=== PATIENT | male | born 1945 | race Caucasian/White ===

== ENCOUNTER → 2019-02-06 | Outpatient (CLI) | payer OTHER ==
[~2019-02-06] VITALS: Ht 167.6 cm; Wt 69.4 kg
[~2019-02-06] MED LIST: ABIRATERONE AC250 MG PO; ARICEPT 5 MG TAB5 MG PO; ESCITALOPRAM OX20 MG PO; FINASTERIDE5 MG PO; FLOMAX0.4 MG PO; GABAPENTIN 100100 MG PO; HYDROCODON-ACE1 EAC7 PO; LOSARTAN POTAS100 MG PO; MOBIC15 MG PO; NABUMETONE 500500 M2 PO; NAMENDA 10 MG T10 MG PO; TRAMADOL 50 MG50 MG PO
[2019-02-06 14:17] VITALS: BP 135/91
--- NOTE | 2019-02-11 17:25 | HPC ---
[facility] [place] [address] PAIN MANAGEMENT CONSULTATION Name: HANNAH MORGAN Room #: REG [facility] M.R.#: [id number] Admission: 02/06/19 ������������������ Attend Phys: Danish Gordon MD Discharge: ������������������ Date of : 47 Report #: [id number] THIS REPORT FOR: //name// CC: BARBARA Bagley MD Physician staff Danish Gordon DATE OF SERVICE: 02/06/2019 REASON FOR CONSULTATION: Severe back pain radiating into the hips. HISTORY OF PRESENT ILLNESS: The patient is here today with his daughter. He has Alzheimer's type dementia. His daughter tells me directly during the interview, her father is at her side. He has a history of prostate cancer. His pain dates back about 6 months when it became more severe and is now described by the daughter as the sharp stabbing pain in his low back that radiates into his hips. The patient tells me it is in both hips and both knees are also painful. These are separate pain generators. It is worsened by walking. He is more comfortable when he is lying or sitting down. He has received a variety of different medications including tramadol, hydrocodone, although there has been no consistency. He has currently been taking tramadol 50 mg changed to 100 mg on a p.r.n. basis. This has not been as helpful as liked. There is some concern by family that this medication might worsen his dementia, although it has not been clearly evident. CURRENT MEDICATIONS: Abiraterone, escitalopram, finasteride, gabapentin, losartan, meloxicam, tamsulosin, and tramadol. He is also on amantadine and donazepril for his dementia. ALLERGIES: None. PAST MEDICAL HISTORY: Remarkable for prostate cancer, hypertension, osteoarthritis involving knees and hips. PAST SURGICAL HISTORY: Daughter reports no surgeries. SOCIAL HISTORY: He lives with his . They are able to live independently in her home, although there is obviously some help from family. He has never smoked, but he has continued to drink alcohol on occasion once weekly or so. PHYSICAL EXAMINATION: GENERAL: He is a pleasant gentleman, alert and oriented, but confused. He can independently move from sitting to standing position, but walks with a fairly unstable gait. He winces as he steps. [address] [address] PAIN MANAGEMENT CONSULTATION Name: HANNAH MORGAN Room #: REG [facility] Chetna.#: [id number] Admission: 02/06/19 ������������������ Attend Phys: Danish Gordon MD Discharge: ������������������ Date of : 47 Report #: [id number] VITAL SIGNS: His blood pressure 135/91, heart rate 67, and respirations 16. He is 5 feet 6 inches, 153 pounds, BMI is 24.7.NECK: Supple. CHEST: Clear. CARDIAC: Reveals a slight grade 2/6 systolic murmur at left sternal border. ABDOMEN: Soft and mildly tender. Pain across the lumbosacral segment is noted. Bilateral sacroiliac joint pain is noted. Straight leg raising is negative for radicular pain. Both knees are tender. There is no peripheral edema. IMPRESSION: 1. Prostate cancer, doing well clinically per Dr. Khoury's notes and PSA is responding to treatment. 2. Chronic low back pain, which is likely spondylitic and related to changes, perhaps within the facets and the sacroiliac joints. 3. Osteoarthritis, bilateral knees. 4. Dementia, Alzheimer's type per daughter. RECOMMENDATIONS: He is against any form of injection therapy. I provided a prescription for hydrocodone #30 and we will assess his response to this from a standpoint of pain, side effects, and daughter will monitor carefully for any opioid related side effects associated with cognition or memory. Many of our patients with dementia can take modest amounts of opioids without worsening the condition, it is not a universal side effects experience by all. At times when pain is better relieved, patients are more calm and actually function at a higher level. 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 He is allowed to take one to two tablets per day in our current agreement. Followup visit planned in 1-2 months. ��������������������������������������������� <ELECTRONICALLY SIGNED> ���������������������������������������� By: Danish Gordon MD ��������������������������������������������� 02/11/19 1725 [id number] Danish Gordon MD /nt
== END ==
LOC: PAIN 08:25
DX: M54.5 Low back pain (principal); G89.29 Other chronic pain; C61 Malignant neoplasm of prostate; M17.0 Bilateral primary osteoarthritis of knee; G30.9 Alzheimer's disease, unspecified; F02.80 Dementia in other diseases classified elsewhere, unspecified severity, without behavioral disturbance, psychotic disturbance, mood disturbance, and anxiety; Z79.899 Other long term (current) drug therapy

== ENCOUNTER → 2019-05-01 | Outpatient (CLI) | payer OTHER ==
[~2019-05-01] VITALS: Ht 167.6 cm; Wt 69.9 kg
[~2019-05-01] MED LIST changes: +BUTRANS1 EACH TOP; +NABUMETONE 500500 M1 PO; +VOLTAREN GEL 1100 G2 TOP
[2019-05-01 13:15] VITALS: BP 137/93
--- NOTE | 2019-05-01 13:39 | NUR ---
Pain Clinic Assessment: 1. History of Osteoarthritis: knees spine History of Rheumatoid Arthritis: Not Applicable 2. Height: 5 ft. 6 in. 167.6 cm. Weight: 154.0 lb. oz. 69.854 kg. Patient's BMI: 24.9 3. Vital Signs: BP: 137/93 Pulse: 66 Resp: 16 Temp: 02 Sat: 97 ECG Mon: 4. Pain Intensity: 9 5. Fall Risk: Dizziness: N Needs help standing or walking: Y Fallen in the last 3 months: N Fall risk comments: 6. Patient on Blood Thinner: None 7. History of Hypertension: Y 8. Opioid Therapy greater than 6 weeks: N Opiate Contract Signed: 9. Risk Assessment Tool Provided: 10. Functional Assessment Tool: 11. Recreational Drug Use: Never Drug Type: Tobacco Use: Never Smoker Tobacco Type: Amount or Packs/day: How Many Years: Alcohol Use: Yes Frequency: Quant:
--- NOTE | 2019-05-06 11:45 | HPC ---
[facility] [address] [address] PAIN MANAGEMENT CONSULTATION Name: HANNAH MORGAN Room #: REG NITISH Martinez#: [id number] Admission: 05/01/19 ������������������ Attend Phys: Janina Triplett Discharge: ������������������ Date of : 47 Report #: [id number] THIS REPORT FOR: //name// CC: Janina RENEE MD Physician staff DATE OF SERVICE: 05/01/2019 CHIEF COMPLAINT: Back pain radiating into his hips and knees. HISTORY OF PRESENT ILLNESS: This is a very pleasant 73-year-old gentleman who returns to the pain clinic today for refill of his medications or to discuss slightly stronger medications that he uses to help treat his low back pain that radiates into his bilateral hips, right greater than left and into his knees. He reports a pain score of 9/10 today. It is worse with walking and activity, but better with lying down and sitting. He is here present with his today. The patient informs me that the hydrocodone that Dr. Danish Gordon gave to him in his last visit made him feel "spacey. He did not like that filling since he already has issues with his memory and takes memory medicine. He is wondering if he had something that is slightly stronger than the tramadol he is taking that something that will not have the same effect as the hydrocodone. He currently has been taking 2 tramadol 50 mg tablets in the morning. They are unsure if they take 2 also in the evening. The patient is also using Biofreeze to his knees. He feels that his knees have increased pain due to their recent move. He did overdo it for his , going up and down the steps quite frequently, carrying heavy boxes. They would like medications today. ALLERGIES: No known drug allergies. CURRENT LIST OF MEDICINES: Nabumetone 500 mg b.i.d., Aricept 5 mg daily, tramadol 50 mg p.r.n., Namenda 10 mg b.i.d., Flomax daily, losartan 100 mg daily, gabapentin 100 mg 3 times a day, finasteride 5 mg daily, escitalopram 20 mg daily and abiraterone 250 mg daily. PQRS: 1. The patient has osteoarthritis in his hips and knees. Denies any rheumatoid arthritis. 2. Height is 5 feet 6 inches, weight is 154, BMI is 24. 4. Vital signs: Temperature 137/93, pulse is 66, respirations 16, oxygen sat is 97. 5. Pain score is 9/10. [place] [address] PAIN MANAGEMENT CONSULTATION Name: HANNAH MORGAN Room #: REG CLLou Basilio.#: [id number] Admission: 05/01/19 ������������������ Attend Phys: Janina Triplett Discharge: ������������������ Date of : 47 Report #: [id number] 6. Denies dizziness. Does need help walking. He has not fallen in the last 3 months. 7. The patient is not on any blood thinners, but does take medicine for hypertension. 8. Opiate therapy is greater than 6 weeks; therefore, we have not signed an opioid contract yet on this patient since he is fairly new to our clinic. 9. Risk assessment tool is low. Functional assessment is 55/70. 10. Recreational drug use, he denies. He is not a smoker and occasionally drinks alcohol. We did check the prescription monitoring system. The patient recently filled his tramadol in April. PHYSICAL EXAMINATION: GENERAL: This is a pleasant gentleman who is alert and orientated, but confused at times. He moves, placing his current pain score at 9/10. HEENT: Normocephalic, atraumatic. Extraocular eye muscles are intact. MUSCULOSKELETAL: The patient moves from sitting to standing position. He walks with an unsteady gait. Straight leg raising is negative for radicular pain. His bilateral knees are tender and pain increases with standing or movement. He has lumbosacral pain that radiates into his bilateral sacroiliac joint and his bilateral hips, right greater than the left. IMPRESSION: 1. Prostate cancer, undergoing current treatment. 2. Chronic low back pain. 3. Sacroiliac joint pain. 4. Osteoarthritis in the bilateral knees. 5. Dementia and Alzheimer's type, per family. We reviewed the fact that opiate medications are being used to provide analgesia adequate to support activities of daily living, not attempting to achieve a specific pain score on the 0-10 Visual Analog Scale. The current opiate medications are providing sufficient analgesia to allow the patient to participate in activities of daily living. The patient is not exhibiting any aberrant behavior suggestive of drug diversion. The patient is not having any adverse reactions to medications. The patient is not suffering from daytime somnolence or mental acuity changes. The patient is managing opiate-induced constipation with appropriate arsd-qkn-deecass agents and dietary considerations. The patient was counseled on concern for caution with operating a motor vehicle while using opiate medications. A physical exam was performed and the patient's functional status was evaluated. All patients with back pain were advised against the bed rest greater than 4 days and were advised to return to normal activities. Pain score assessment was noted and the treatment plan was reviewed with the patient. All current [facility] [address] [place] [address] PAIN MANAGEMENT CONSULTATION Name: HANNAH MORGAN Room #: [facility] [id number] Admission: 05/01/19 ������������������ Attend Phys: Janina Triplett Discharge: ������������������ Date of : 46 Report #: [id number] medications, both prescribed and OTC were reviewed and reconciled on the electronic medical record. Tobacco screening was accomplished and smoking cessation was advised when indicated. BMI was noted and diet/exercise modification was recommended for all patients following outside normal parameters. I reviewed with the patient today their responsibilities to safeguard prescription medications, reviewed their responsibility to utilize medications only as prescribed by the physician. They are to seek and receive pain medications only from 1 physician group ( [facility]). They are to use 1 pharmacy and keep the clinic informed if they change pharmacies. Their responsibilities include making followup visits in a timely fashion and to avoid abrupt discontinuation of medication usage. Their responsibilities further include bringing their medications (bottles from the pharmacy with residual pills) to the visit for possible confirmation of pill counts and the patient understands it is their responsibility to submit to random drug screens to ensure both that the medications prescribed are present, and that no other controlled substances are present. All prescriptions provided today were generated electronically. PLAN: 1. We discussed treatment options with the patient today. The patient found the hydrocodone trial to make him feel spacey and feeling overmedicated; therefore, he was switched back to his tramadol, which has not been as effective in controlling his pain. He is seeking alternatives. We discussed tramadol ER as a possible option of 100 mg daily, but I believe a better choice for him maybe buprenorphine. This does come in a pill or a patch form. I think Butrans patch at 5 mcg would be a very good choice for him. He or his would not have to think about this medication as it would be steady state for him for 7 days, replacing that once a week. We will start at the lowest dose at 5 mcg. The patient instructed to call in a week. If it is not beneficial in controlling this pain, this medication does come in various other strengths, we may choose to double that medicine or give him 7.5 mcg patches. I explained to them that this is a different receptor then they have had with their pain medicines before and I am hopeful that it will be very beneficial for him. 2. The patient does take nabumetone 500 mg 1-2 tablets a day for his ongoing arthritic changes since he has been complaining of increased knee pain. I offered him Voltaren gel to use on his knees sparingly to see if that helps on the days that he uses Voltaren gel, he will take only one nabumetone. 3. The patient is seen with Dr. Danish Gordon today who also collaborated care. The patient will call with his report on how medications doing, we will [address] [address] PAIN MANAGEMENT CONSULTATION Name: HANNAH MORGAN Room #: SOFI Martinez#: [id number] Admission: 05/01/19 ������������������ Attend Phys: Janina Triplett Discharge: ������������������ Date of : 47 Report #: [id number] call in refills if need be for additional 2 months and therefore, the patient will return in 3 months. ��������������������������������������������� <ELECTRONICALLY SIGNED> ���������������������������������������� By: Janina Triplett ��������������������������������������������� 05/06/19 1145 [id number] Janina Triplett /nt
== END ==
LOC: PAIN 03-03 06:57
DX: M54.5 Low back pain (principal); G89.29 Other chronic pain; M53.3 Sacrococcygeal disorders, not elsewhere classified; M17.0 Bilateral primary osteoarthritis of knee; C61 Malignant neoplasm of prostate; G30.9 Alzheimer's disease, unspecified; F02.80 Dementia in other diseases classified elsewhere, unspecified severity, without behavioral disturbance, psychotic disturbance, mood disturbance, and anxiety; Z79.899 Other long term (current) drug therapy

== ENCOUNTER → 2019-06-06 | Outpatient (CLI) | payer OTHER ==
[~2019-06-06] VITALS: Ht 167.6 cm; Wt 70.7 kg
[~2019-06-06] MED LIST changes: +VOLTAREN GEL 1100 GM TOP
[2019-06-06 08:18] VITALS: BP 148/91
--- NOTE | 2019-06-06 08:27 | NUR ---
Pain Clinic Assessment: 1. History of Osteoarthritis: knees spine History of Rheumatoid Arthritis: Not Applicable 2. Height: 5 ft. 6 in. 167.6 cm. Weight: 155.8 lb. oz. 70.670 kg. Patient's BMI: 25.2 3. Vital Signs: BP: 148/91 Pulse: 70 Resp: 16 Temp: 02 Sat: 97 ECG Mon: 4. Pain Intensity: 6 5. Fall Risk: Dizziness: N Needs help standing or walking: Y Fallen in the last 3 months: N Fall risk comments: 6. Patient on Blood Thinner: None 7. History of Hypertension: Y 8. Opioid Therapy greater than 6 weeks: N Opiate Contract Signed: 9. Risk Assessment Tool Provided: 10. Functional Assessment Tool: 11. Recreational Drug Use: Never Drug Type: Tobacco Use: Never Smoker Tobacco Type: Amount or Packs/day: How Many Years: Alcohol Use: Yes Frequency: Quant:
--- NOTE | 2019-06-09 08:43 | HPC ---
[facility] [address] [place] [address] PAIN MANAGEMENT CONSULTATION Name: HANNAH MORGAN Room #: REG NITISH Basilio.#: [id number] Admission: 06/06/19 Attend Phys: Janina Triplett Discharge: Date of : 47 Report #: [id number] THIS REPORT FOR: //name// CC: Janina Durbin MD DATE OF SERVICE: 06/06/2019 CHIEF COMPLAINT: Back pain radiating to his knees and hips. HISTORY OF PRESENT ILLNESS: This is a very pleasant 73-year-old gentleman who returns to the pain clinic today for followup for medication change that we made last month. He is finding the Butrans very beneficial in controlling his pain. He reports that it took about 2 weeks before he noticed a difference, but since that time, he feels that he has been more active and able to do more while taking the Butrans patch. Today, he does report his pain as a 6/10 since he was needing to change his patch yesterday. He reports most of his pain is in his lumbar spine as well as bilateral knees and hips. It is worse with activity, but better with lying down and sitting. He also reports that diclofenac gel has been beneficial, is rubbing it on his knees. He would like refills of all these medications today. ALLERGIES: No known drug allergies. CURRENT LIST OF MEDICATIONS: Nabumetone 500 mg b.i.d. p.r.n., Butrans 5 mcg patch daily, Voltaren gel as needed, Aricept 5 mg daily, Namenda 10 mg b.i.d., Flomax 0.4 mg daily, losartan 100 mg daily, gabapentin 100 mg 3 times a day, finasteride 5 mg daily, Lexapro 20 mg daily and abiraterone 250 mg daily. PQRS: 1. He has osteoarthritis in his hips and knees. Denies any rheumatoid arthritis. 2. Height is 5 feet 6 inches, weight is 155, BMI is 25. 3. Vital signs 148/91, pulse is 70, respirations 16, oxygen sat is 97. 4. Pain score 6/10. 5. Fall risk. Denies dizziness. Does need help walking, has not fallen in the last 3 months. The patient is not on any blood thinners, but does take medicine for hypertension. His opioid therapy is greater than 6 weeks; therefore, we will place an opioid signed contract on the chart for him to sign. Risk assessment tool is low. Functional assessment is 55/70. 6. Recreational drug use, he denies. He is not a smoker and occasionally drinks alcohol. According to the prescription monitoring system, the patient is filling appropriately for his medications and is due to fill those today. [address] [address] PAIN MANAGEMENT CONSULTATION Name: HANNAH MORGAN Room #: REG NITISH Martinez#: [id number] Admission: 06/06/19 Attend Phys: Janina Triplett Discharge: Date of : 47 Report #: [id number] PHYSICAL EXAMINATION: GENERAL: This is a pleasant gentleman who is alert and orientated. He is placing his current pain score at 6/10 today. HEENT: Normocephalic, atraumatic. Extraocular eye muscles are intact. Mucous membranes are moist. MUSCULOSKELETAL: The patient moves from sitting to standing position with slight difficulty. He walks with an unsteady antalgic gait. Straight leg raising is negative for radicular pain. He has tenderness in his bilateral knees that worsens with standing and movement. IMPRESSION: 1. Prostate cancer, undergoing current treatment. 2. Chronic low back pain. 3. Sacroiliac joint pain. 4. 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 5. Dementia and Alzheimer's. We reviewed the fact that opiate medications are being used to provide analgesia adequate to support activities of daily living, not attempting to achieve a specific pain score on the 0-10 Visual Analog Scale. The current opiate medications are providing sufficient analgesia to allow the patient to participate in activities of daily living. The patient is not exhibiting any aberrant behavior suggestive of drug diversion. The patient is not having any adverse reactions to medications. The patient is not suffering from daytime somnolence or mental acuity changes. The patient is managing opiate-induced constipation with appropriate ymyk-rmw-dcwchmd agents and dietary considerations. The patient was counseled on concern for caution with operating a motor vehicle while using opiate medications. A physical exam was performed and the patient's functional status was evaluated. All patients with back pain were advised against the bed rest greater than 4 days and were advised to return to normal activities. Pain score assessment was noted and the treatment plan was reviewed with the patient. All current medications, both prescribed and OTC were reviewed and reconciled on the electronic medical record. Tobacco screening was accomplished and smoking cessation was advised when indicated. BMI was noted and diet/exercise modification was recommended for all patients following outside normal parameters. I reviewed with the patient today their responsibilities to safeguard prescription medications, reviewed their responsibility to utilize medications only as prescribed by the physician. They are to seek and receive pain medications only from 1 physician group ([facility]). They are to use 1 pharmacy and keep the clinic informed if they change pharmacies. Their responsibilities include making followup visits in a timely fashion and to avoid abrupt discontinuation of medication usage. Their responsibilities further [place] [id number] PAIN MANAGEMENT CONSULTATION Name: HANNAH MORGAN Room #: REG [facility] M..#: [id number] Admission: 06/06/19 Attend Phys: Janina Triplett Discharge: Date of : 47 Report #: [id number] include bringing their medications (bottles from the pharmacy with residual pills) to the visit for possible confirmation of pill counts and the patient understands it is their responsibility to submit to random drug screens to ensure both that the medications prescribed are present, and that no other controlled substances are present. All prescriptions provided today were generated electronically. PLAN: 1. We discussed treatment options with the patient and family today. He feels that the Butrans is quite beneficial in controlling his pain. He likes not having to think about taking medicines throughout the day. He would like refills of this patch. Script given today for 5 mcg #4 with 2 additional refills. This is a 3-month supply, places him currently at 50 morphine mEq a day 2. The patient does complain of some constipation issues. Per his , he does not drink much liquids throughout the day, which also does not need help his constipation. I encouraged him to drink water, whether it be flavored water with fruit in it. Encouraged to increase his daily intake, also try MiraLax or stool softeners to see if this is beneficial in controlling some of his constipation issues. 3. Scripts given also today for his Voltaren gel, which he finds beneficial. Using it couple of times a day to his knees as well as nabumetone 500 mg b.i.d. p.r.n. with 2 additional refills. The patient is seen in collaboration with Dr. Karan Knox. <ELECTRONICALLY SIGNED> By: Janina Triplett 06/09/19 0843 [id number] Janina Triplett /nt
== END ==
LOC: PAIN 06:55
DX: Z76.0 Encounter for issue of repeat prescription (principal); C61 Malignant neoplasm of prostate; M54.5 Low back pain; G89.29 Other chronic pain; M17.0 Bilateral primary osteoarthritis of knee; G30.9 Alzheimer's disease, unspecified; F02.80 Dementia in other diseases classified elsewhere, unspecified severity, without behavioral disturbance, psychotic disturbance, mood disturbance, and anxiety; Z79.891 Long term (current) use of opiate analgesic; Z79.899 Other long term (current) drug therapy

== ENCOUNTER → 2019-09-01 | Outpatient (CLI) | payer OTHER ==
[~2019-09-01] VITALS: Ht 167.6 cm; Wt 71.7 kg
[~2019-09-01] MED LIST changes: +STOOL SOFTENER100 M1 PO
[2019-09-01 13:35] VITALS: BP 113/74
--- NOTE | 2019-09-01 13:55 | NUR ---
Pain Clinic Assessment: 1. History of Osteoarthritis: knees spine History of Rheumatoid Arthritis: Not Applicable 2. Height: 5 ft. 6 in. 167.6 cm. Weight: 158.0 lb. oz. 71.668 kg. Patient's BMI: 25.5 3. Vital Signs: BP: 113/74 Pulse: 78 Resp: 16 Temp: 02 Sat: 97 ECG Mon: 4. Pain Intensity: 8 5. Fall Risk: Dizziness: N Needs help standing or walking: Y Fallen in the last 3 months: Y Fall risk comments: 6. Patient on Blood Thinner: None 7. History of Hypertension: Y 8. Opioid Therapy greater than 6 weeks: N Opiate Contract Signed: 9. Risk Assessment Tool Provided: 10. Functional Assessment Tool: 11. Recreational Drug Use: Never Drug Type: Tobacco Use: Never Smoker Tobacco Type: Amount or Packs/day: How Many Years: Alcohol Use: Yes Frequency: Weekly Quant: 2 DRINKS
--- NOTE | 2019-09-02 08:26 | HPC ---
[facility] [address] [place] [address] PAIN MANAGEMENT CONSULTATION Name: HANNAH MORGAN Room #: REG NITISH Martinez#: [id number] Admission: 09/01/19 Attend Phys: Janina Triplett Discharge: Date of : 47 Report #: [id number] THIS REPORT FOR: //name// CC: Janina Durbin MD DATE OF SERVICE: 09/01/2019 CHIEF COMPLAINT: Back pain radiating to his knees and hips and left groin pain. HISTORY OF PRESENT ILLNESS: This is a pleasant 74-year-old gentleman who returns to the pain clinic today for refill of his Butrans patch. He has a family member here with him. At times, he is forgetful of words and does seek information from his daughter throughout our visit. The patient does report a pain score of 8/10 in his lower back and bilateral knees. He does report that he recently fell and saw his primary care doctor. He did have some x-rays in the office. He states that he had a groin pull that continues to be problematic. The patient is walking with antalgic gait, favoring that leg and he does use a cane. His pain is worse with walking and activity, but better when he lies down. He is wearing his Butrans patch, which he reports does not cause him any problems with daytime sleepiness or constipation. He does take an occasional tramadol throughout the day if his pain is increased. ALLERGIES: No known drug allergies. CURRENT LIST OF MEDICATIONS: Colace, nabumetone 500 mg b.i.d., Voltaren gel p.r.n., Butrans patch 5 mcg daily, Aricept 5 mg daily, Namenda 10 mg b.i.d., Flomax 0.4 mg daily, losartan, gabapentin, finasteride, escitalopram. PQRS: 1. He has osteoarthritic changes in his hips and knees. Denies any rheumatoid arthritis. 2. Height is 5 feet 6 inches, weight is 158, BMI is 25. 3. Vital signs, blood pressure 113/74, pulse is 78, respirations 16, oxygen sat is 97. 4. Pain score is 8/10. 5. Denies dizziness. Does need help walking using a cane. He has fallen in the last 3 months. 6. The patient is not on any blood thinners, but does take medicine for hypertension. 7. Opiate therapy is greater than 6 weeks. Risk assessment tool is low. Functional assessment is 55/70. 8. Recreational drug use, he denies. He is not a smoker and occasionally drinks alcohol 2 drinks per week. [address] [address] PAIN MANAGEMENT CONSULTATION Name: HANNAH MORGAN Room #: REG NITISH Martinez#: [id number] Admission: 09/01/19 Attend Phys: Janina Triplett Discharge: Date of : 47 Report #: [id number] PHYSICAL EXAMINATION: GENERAL: This is pleasant gentleman who is alert and orientated. He is forgetful at times, rating his pain score at 8/10. HEENT: Normocephalic, atraumatic. Extraocular eye muscles are intact. Mucous membranes are moist. MUSCULOSKELETAL: The patient moves from sitting to standing using the armrest. He does walk with an unsteady antalgic gait using a cane. He has pain in his left groin that radiates from his hip into the groin from a recent fall. He has equal strength in his lower extremities. Straight leg raising does increase his pain in his left leg. IMPRESSION: 1. Prostate cancer, undergoing current treatment. 2. Left groin pain. 3. Chronic low back pain. 4. Sacroiliac joint pain. 5. Dementia and Alzheimer's with treatment of medication. 6. 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 7. Opioid management under terms of written opioid agreement. PLAN: 1. We discussed treatment options with the patient today. The patient reports that his pain is an 8/10. Most of his pain is located in his left groin from a recent fall. I did discuss in great length that I believe physical therapy may be beneficial in helping with this groin pull. The patient is worried about how he will get to physical therapy since he is reliant on others to help drive him. He is uncertain that this is a good option for his pain, though his family states they think that it would be beneficial for him. They will make sure that he gets to appointments. Scripts will be written for 2 times a week for 2-3 weeks to see if this is beneficial in reducing his pain. The patient instructed to call his primary care doctor if the symptoms continue. 2. We will refill his Butrans 5 mcg patch for 4 patches for 1 month with 2 additional refills. 3. We will refill his diclofenac gel. He takes sparingly on his knees and ankles as well as nabumetone 500 mg b.i.d., #60 with 2 additional refills will be sent. The patient cautioned about any GI upset to take this medication with food. The patient currently states he is having no gastric issues. 4. The patient will return in 3 months. I encouraged to make a timely appointment. Family verbalizes understanding. <ELECTRONICALLY SIGNED> By: Janina Triplett 09/02/19 0826 [id number] 01 Janina zarate
== END ==
LOC: PAIN 13:09
DX: M54.9 Dorsalgia, unspecified (principal); C61 Malignant neoplasm of prostate; R10.9 Unspecified abdominal pain; G30.9 Alzheimer's disease, unspecified; F02.80 Dementia in other diseases classified elsewhere, unspecified severity, without behavioral disturbance, psychotic disturbance, mood disturbance, and anxiety; Z79.891 Long term (current) use of opiate analgesic

== ENCOUNTER → 2019-12-08 | Outpatient (CLI) | payer OTHER ==
[~2019-12-08] MED LIST changes: +DURAGESIC1 EACH TRANSDERM; +ULTRAM50 MG PO
--- NOTE | ~2019-12-08 | HPC ---
[facility] [place] [address] PAIN MANAGEMENT CONSULTATION Name: HANNAH MORGAN Room #: REG NITISH Chetna.#: [id number] Admission: 12/08/19 Attend Phys: Dnaish Gordon MD Discharge: Date of : 47 Report #: [id number] THIS REPORT FOR: cc: BARBARA MOLINA Physician not on staff Danish Gordon MD ~ CC: BARBARA Bagley MD Physician staff Danish Gordon DATE OF SERVICE: 12/08/2019 TELEMEDICINE VISIT Followup visit for chronic back pain with radiation into lower extremities, history of prostate cancer and dementia. Time of consultation 09:32 to 09:57, 15 minutes. I connected by telemedicine today with the patient and his . Our 15-minute consultation took place with the use of both audio and visual assistance via iPad and [employer]. He is getting along okay. Pain score is still in the range of 5-8. We provide for him Butrans 5 mcg per hour patches, which he changes every 7 days. He has lately noticed that the patches are falling off and are expensive. They cost him $100 per month. They are somewhat effective, but he has mild constipation for which he requires a softener. He wanted to discuss potential alternate medicines. He is also using 2 types of nonsteroidal anti-inflammatory drugs, low-dose Voltaren 1% gel applied to his arthritic knees and his back as well as nabumetone 500 mg b.i.d. He takes this p.r.n. nearly every day. We discussed the two NSAID medicines. His absorption of Voltaren in blood level should be quite low. Both GI and renal side effects are possible as well as a very remote risk of some cardiac side effects, so he is aware and will be carefully monitoring his GI symptoms. Currently, he seems to be tolerating them. Other medications are Aricept, Namenda, Flomax, losartan, gabapentin, finasteride and escitalopram. PQRS is positive for osteoarthritis of hips and knees. His BMI is stable at 25.5, similar to last visit. Blood pressure 113/74, heart rate 78, respirations 16, O2 sat 97, pain intensity 8. He needs some help standing or walking would be considered a fall risk. He has fallen in the last 3 months and we talked [facility] [address] [place] [address] PAIN MANAGEMENT CONSULTATION Name: HANNAH MORGAN Room #: REG NITISH Martinez#: [id number] Admission: 12/08/19 Attend Phys: Danish Godron MD Discharge: Date of : 47 Report #: [id number] extensively about the use of a cane or some other support device when he is up on his feet because of weakness. He is on no blood thinners. He is treated for hypertension by primary care physician, Dr. Daniel, and all medications prescribed by all physicians were reviewed and reconciled on the electronic medical record. He is on an opioid agreement and has completed an opioid risk tool, which shows that he is at low risk for addiction. Denies use of tobacco, occasionally drinks alcohol, no more than 2 drinks in a social setting. He was cautioned about combination of opioids and alcohol. Further exam was not carried on today as a result of the telemedicine visit, but he is alert and oriented, followed the conversation well and did not show significant signs of forgetfulness or dementia during our phone call. His affect was pleasant, did not appear overmedicated. IMPRESSION: 1. Prostate cancer. 2. Chronic low back pain and groin pain, which is likely myofascial and he has responded to physical therapy. 3. Sacroiliac joint pain. 4. Alzheimer's type dementia. 5. Diffuse osteoarthritis affecting knees primarily. 6. Management of opioids under terms of written agreement. PLAN: 1. Discontinue Butrans patches. Twelve hours later began fentanyl 12 mcg. After 2 days, he may increase this to 2 patches of 12 if ineffective. 2. Followup in the pain clinic in 1-2 weeks by phone to discuss response. May continue to titrate the fentanyl patch upwards. Hopefully, this will be more cost effective for him. All new blood work will be sent to our clinic at my request so we can review renal function. New medicines were renewed electronically. Total time of consultation 15 minutes. Followup as needed. By: [id number] Danish Gordon MD /nt
== END ==
LOC: TELEPC 06:51 → PAIN 08:43 → TELEPC 15:00
DX: C61 Malignant neoplasm of prostate (principal); M54.5 Low back pain; G89.29 Other chronic pain; G30.9 Alzheimer's disease, unspecified; F02.80 Dementia in other diseases classified elsewhere, unspecified severity, without behavioral disturbance, psychotic disturbance, mood disturbance, and anxiety; M17.0 Bilateral primary osteoarthritis of knee; Z79.891 Long term (current) use of opiate analgesic; Z79.899 Other long term (current) drug therapy

== ENCOUNTER → 2020-02-05 | Outpatient (CLI) | payer OTHER ==
[~2020-02-05] VITALS: Ht 167.6 cm; Wt 73.0 kg
[~2020-02-05] MED LIST changes: +BUTRANS1 EACH INTRADERM
[2020-02-05 14:02] VITALS: BP 163/94
--- NOTE | 2020-02-05 14:40 | NUR ---
Pain Clinic Assessment: 1. History of Osteoarthritis: knees spine History of Rheumatoid Arthritis: Not Applicable 2. Height: 5 ft. 6 in. 167.6 cm. Weight: 161.0 lb. oz. 73.029 kg. Patient's BMI: 26.0 3. Vital Signs: BP: 163/94 Pulse: 70 Resp: 14 Temp: 02 Sat: 99 ECG Mon: 4. Pain Intensity: 8 5. Fall Risk: Dizziness: N Needs help standing or walking: N Fallen in the last 3 months: N Fall risk comments: 6. Patient on Blood Thinner: None 7. History of Hypertension: Y 8. Opioid Therapy greater than 6 weeks: N Opiate Contract Signed: 9. Risk Assessment Tool Provided: 0-low risk 10. Functional Assessment Tool: 11. Recreational Drug Use: Never Drug Type: Tobacco Use: Never Smoker Tobacco Type: Amount or Packs/day: How Many Years: Alcohol Use: Yes Frequency: Special Occasions Quant: 1 beer
--- NOTE | 2020-02-09 14:24 | HPC ---
[facility] [address] [address] PAIN MANAGEMENT CONSULTATION Name: HANNAH MORGAN Room #: REG Lou MSuzanne.#: [id number] Admission: 02/05/20 Attend Phys: Janina Triplett Discharge: Date of : 47 Report #: [id number] THIS REPORT FOR: cc: BARBARA MOLINA Physician not on staff Janina Triplett ~ CC: Danish Gordon MD DATE OF SERVICE: 02/05/2020 CHIEF COMPLAINT: Chronic back pain with radiation into his lower extremity, history of prostate cancer and dementia. HISTORY OF PRESENT ILLNESS: This is a 74-year-old gentleman who returns to the pain clinic to discuss medication management. Dr. Danish Gordon saw him last in November for a telemedicine appointment where they had rotated his opioid medications from Butrans 5 mcg patch to fentanyl 12 mcg every 3 days. The patient feels that his pain score today is 8/10 and that he had more favorable pain control on the Butrans patch than he has on the fentanyl. He is wanting to rotate back to that previous medication. They thought that it was more expensive, but they found that not to be the case and they also feel that changing a patch for them once a week is more beneficial than every 3 days. The patient has been complaining of some constipation issues as well. Denies any daytime sleepiness. Today, the patient reports his pain is mostly located in his right hip and leg. He has been moving boxes as they are preparing to move to a different apartment. This has caused some increase in his hip. It is sharp, intermittent. His pain is also exacerbated by walking. He feels the medication as well as sitting and lying down are beneficial. ALLERGIES: No drug allergies. CURRENT LIST OF MEDICATIONS: Fentanyl patch 12 mcg, nabumetone 500 mg b.i.d., Voltaren gel as needed, tramadol 1 p.r.n., Colace, Aricept, Namenda, Flomax, losartan, Neurontin, finasteride, escitalopram and abiraterone acetate. PQRS: 1. He is positive for osteoarthritis of his hips and knees. Denies rheumatoid arthritis. 2. Height 5 feet 6 inches, weight is 161, BMI is 26. Vital signs 163/94, pulse is 70, respirations 14, oxygen sat is 99. Pain score is 8/10. 3. Fall risk. Denies dizziness, does not need help walking or standing, has not fallen in the last 3 months. The patient is not on any blood thinners, but does take medicine for hypertension. Opioid therapy is greater than 6 weeks; therefore, an opioid signed contract is on the chart. Risk assessment is low. [address] [address] PAIN MANAGEMENT CONSULTATION Name: HANNAH MORGAN Room #: REG NITISH Martinez#: [id number] Admission: 02/05/20 Attend Phys: Janina Triplett Discharge: Date of : 47 Report #: [id number] Functional assessment is 45/70. 4. Recreational drug use, he denies. He is not a smoker and occasionally drinks one beer. According to the prescription monitoring system, the patient is filling appropriately for his medications in a timely fashion. He does take tramadol from his primary care doctor averaging 2 tablets a day of that medication. PHYSICAL EXAMINATION: GENERAL: This is alert and orientated, well-developed, well-nourished 74-year-old gentleman who is rating his pain score today at 8/10. At times, he is forgetful. HEENT: Normocephalic, atraumatic. Extraocular eye muscles are intact. Mucous membranes are moist. MUSCULOSKELETAL: The patient moves from sitting to standing position with slight difficulty. He has an unsteady gait. Straight leg raising is positive on the right, negative on the left. Tenderness in his bilateral knees. Tenderness in his right hip. Tenderness in his lumbar spine that radiates into his right hip, down his leg today. IMPRESSION: 1. Prostate cancer. 2. Chronic low back pain and hip pain. 3. Sacroiliac joint pain. 4. Alzheimer type dementia. 5. Diffuse osteoarthritis affecting his knees. 6. Management of opioid medications under terms of written agreement. We reviewed the fact that opiate medications are being used to provide analgesia adequate to support activities of daily living, not attempting to achieve a specific pain score on the 0-10 Visual Analog Scale. The current opiate medications are providing sufficient analgesia to allow the patient to participate in activities of daily living. The patient is not exhibiting any aberrant behavior suggestive of drug diversion. The patient is not having any adverse reactions to medications. The patient is not suffering from daytime somnolence or mental acuity changes. The patient is managing opiate-induced constipation with appropriate etdy-lqc-deoabeu agents and dietary considerations. The patient was counseled on concern for caution with operating a motor vehicle while using opiate medications. PLAN: 1. We discussed his treatment of opioid medications. He had had a short trial of fentanyl 12 mcg patch. The patient feels the Butrans 5 mcg was more beneficial in controlling his pain. At first, they thought it was more costly to have Butrans, but they have determined that that is not the case. They also believe that the fentanyl patches are quite small. He is having problems [facility] [address] [place] [address] PAIN MANAGEMENT CONSULTATION Name: HANNAH MORGAN Room #: REG NITISH Basilio.#: [id number] Admission: 02/05/20 Attend Phys: Janina Triplett Discharge: Date of : 47 Report #: [id number] keeping them on, but mostly his pain was better controlled on Butrans. We will restart that medication, writing scripts for #4, the patient to switch every 7 days, 2 additional refills were given. 2. We did discuss the patient's Voltaren use as well as their nabumetone. The who is present today is unsure if they need refills. I instructed her to call the office and we will refill those medications if needed. 3. The patient is seen in collaboration with Dr. Danish Gordon who did see the patient as well. <ELECTRONICALLY SIGNED> By: Janina Triplett 02/09/20 1424 [id number] [id number] Janina Triplett /pro
== END ==
LOC: PAIN
PROVIDERS: ATTEND Clinical Nurse Specialist Adult Health
DX: C61 Malignant neoplasm of prostate (principal); M54.5 Low back pain; G30.9 Alzheimer's disease, unspecified; M17.0 Bilateral primary osteoarthritis of knee; M53.3 Sacrococcygeal disorders, not elsewhere classified; F11.90 Opioid use, unspecified, uncomplicated; F02.80 Dementia in other diseases classified elsewhere, unspecified severity, without behavioral disturbance, psychotic disturbance, mood disturbance, and anxiety

== ENCOUNTER → 2020-05-10 | Outpatient (CLI) | payer OTHER ==
[~2020-05-10] VITALS: Ht 167.6 cm; Wt 71.1 kg
[2020-05-10 13:02] VITALS: BP 152/99
--- NOTE | 2020-05-10 13:12 | NUR ---
Pain Clinic Assessment: 1. History of Osteoarthritis: knees spine History of Rheumatoid Arthritis: Not Applicable 2. Height: 5 ft. 6 in. 167.6 cm. Weight: 156.8 lb. oz. 71.124 kg. Patient's BMI: 25.3 3. Vital Signs: BP: 152/99 Pulse: 75 Resp: 16 Temp: 02 Sat: 96 ECG Mon: 4. Pain Intensity: 7 5. Fall Risk: Dizziness: N Needs help standing or walking: N Fallen in the last 3 months: N Fall risk comments: 6. Patient on Blood Thinner: None 7. History of Hypertension: Y 8. Opioid Therapy greater than 6 weeks: N Opiate Contract Signed: 9. Risk Assessment Tool Provided: 0-low risk 10. Functional Assessment Tool: 11. Recreational Drug Use: Never Drug Type: Tobacco Use: Never Smoker Tobacco Type: Amount or Packs/day: How Many Years: Alcohol Use: Yes Frequency: Quant:
--- NOTE | 2020-05-11 08:21 | HPC ---
[facility] [address] [place] [address] PAIN MANAGEMENT CONSULTATION Name: HANNAH MORGAN Room #: REG NITISH M.Demario.#: [id number] Admission: 05/10/20 Attend Phys: Janina Triplett Discharge: Date of : 47 Report #: [id number] THIS REPORT FOR: cc: BARBARA MOLINA not on staff Janina Triplett ~ CC: Danish Gordon MD DATE OF SERVICE: 05/10/2020 CHIEF COMPLAINT: Chronic back pain and history of prostate cancer. HISTORY OF PRESENT ILLNESS: This is a 74-year-old gentleman who is here today with his who is helping answer questions due to the patient's dementia. Today, he is reporting a pain score 7/10. He feels that the Butrans patch is beneficial in helping relieve a significant portion of his pain as well as tramadol that he does take on a daily basis. He likes it. He does not have to think about changing the patch for at least a week that is helpful for his as well. He denies significant issues with constipation. He does take MiraLax on a regular basis with good results. The patient today reports that his pain is mostly in his right hip and leg and his lower back. It is an intermittent sharp pain, worse with activity and walking, though he does report that they have recently moved to a new [place] and older community. He is slightly more active than he had been in his previous location. They do have a pool table that he plays pool with the grandchildren and finds this is beneficial, though at times this increase his pain. Today, they are requesting refills of his Butrans patch as well as his nabumetone. ALLERGIES: No known drug allergies. CURRENT LIST OF MEDICATIONS: Butrans 5 mcg weekly, Voltaren gel p.r.n., nabumetone 500 mg b.i.d., tramadol 50 mg b.i.d., Aricept 5 mg, Namenda 10 mg b.i.d., Flomax, losartan, gabapentin, finasteride, Lexapro, and abiraterone. PQRS: 1. He has osteoarthritis in his knees and spine. Denies any rheumatoid arthritis. 2. Height is 5 feet 6 inches, weight is 156, BMI is 25. 3. Vital signs; blood pressure 152/99, pulse is 75, respirations 16, oxygen sat is 96. 4. Pain score is 7/10. 5. Denies dizziness, does not need help walking or standing, has not fallen in the last 3 months. 6. The patient is not on any blood thinners, but does take medicine for hypertension. 7. Opioid therapy is greater than 6 weeks; therefore, an opioid signed contract [address] [address] PAIN MANAGEMENT CONSULTATION Name: HANNAH MORGAN Room #: REG NITISH Martinez#: [id number] Admission: 05/10/20 Attend Phys: Janina Trilpett Discharge: Date of : 46 Report #: [id number] is on the chart. Risk assessment is low. Functional assessment is 45/70. 8. Recreational drug use, she denies. Not a smoker and does occasionally drink alcohol. According to the prescription monitoring system, he is filling appropriately for his medications. His morphine milliequivalent is under 50 MMEs per day. PHYSICAL EXAMINATION: GENERAL: This is an alert and pleasant gentleman who does show signs of forgetfulness and looks to his for confirmation. His affect is pleasant, does not appear overmedicated. Rating his pain score at 7/10 today. HEENT: Normocephalic, atraumatic. Extraocular eye muscles are intact. He is wearing a mask. MUSCULOSKELETAL: The patient moves from sitting to standing without difficulty. He does walk with a slightly antalgic gait. Pain radiates from his lumbosacral region into his bilateral legs. Lower extremity strength is equal and symmetrical in both legs. IMPRESSION: 1. Prostate cancer. 2. Chronic low back pain. 3. Dementia and Alzheimer's disease treatment with this medication. 4. Osteoarthritis of his bilateral knees. 5. Opioid medication under written agreement. We reviewed the fact that opiate medications are being used to provide analgesia adequate to support activities of daily living, not attempting to achieve a specific pain score on the 0-10 Visual Analog Scale. The current opiate medications are providing sufficient analgesia to allow the patient to participate in activities of daily living. The patient is not exhibiting any aberrant behavior suggestive of drug diversion. The patient is not having any adverse reactions to medications. The patient is not suffering from daytime somnolence or mental acuity changes. The patient is managing opiate-induced constipation with appropriate tepl-eqg-pwcersx agents and dietary considerations. The patient was counseled on concern for caution with operating a motor vehicle while using opiate medications. PLAN: 1. The patient finds the Butrans patch very beneficial in controlling his pain. They feel that it is more beneficial than the fentanyl patch that we had tried in December with minimal side effects. We will have Dr. Danish Gordon send the Butrans 5 mcg every 7 days, #4 with 2 additional refills to his pharmacy. 2. The patient does take nabumetone 500 mg twice a day with no GI side effects. We will send this prescription electronically for 60 with 2 additional refills. At the time the family does give him his Voltaren gel to apply to his knees when he does complain of osteoarthritic issues. I explained that that [facility] [address] [place] [address] PAIN MANAGEMENT CONSULTATION Name: HANNAH MORGAN Room #: REG CL Chetna.#: [id number] Admission: 05/10/20 Attend Phys: Janina Triplett Discharge: Date of : 47 Report #: [id number] medication is now fmpv-tuj-wllcoet at the same percent. When they do need a refill, they may obtain this kaeu-eyp-vigpjtt. verbalizes understanding. 3. We did discuss he has some issues with constipation, encouraging him to take MiraLax every other day to see if that is beneficial to keep him more regular and encourage lots of liquids which the patient does agree he does drink throughout the day. 4. The patient is seen in collaboration with Dr. Danish Gordon. They will return in 3 months prior to the end of this calendar year. <ELECTRONICALLY SIGNED> By: Janina Triplett 05/11/20 0821 1346 [id number] Janina Triplett /nt
== END ==
LOC: PAIN 07:07
PROVIDERS: ATTEND Clinical Nurse Specialist Adult Health
DX: M54.5 Low back pain (principal); G89.29 Other chronic pain; G30.9 Alzheimer's disease, unspecified; F02.80 Dementia in other diseases classified elsewhere, unspecified severity, without behavioral disturbance, psychotic disturbance, mood disturbance, and anxiety; M17.0 Bilateral primary osteoarthritis of knee; F11.20 Opioid dependence, uncomplicated; Z85.46 Personal history of malignant neoplasm of prostate; Z79.899 Other long term (current) drug therapy

== ENCOUNTER → 2020-08-19 | Outpatient (CLI) | payer OTHER ==
[~2020-08-19] VITALS: Ht 167.6 cm; Wt 72.6 kg
--- NOTE | ~2020-08-19 | HPC ---
[facility] [address] [place] [address] PAIN MANAGEMENT CONSULTATION Name: HANNAH MORGAN Room #: REG NITISH Martinez#: [id number] Admission: 08/19/20 Attend Phys: Janina Triplett Discharge: Date of : 47 Report #: [id number] THIS REPORT FOR: cc: Pawan Daniel James A. DO Hocker, Amanda CNS ~ DATE OF SERVICE: 08/19/2020 CHIEF COMPLAINT: Chronic back pain with history of prostate cancer. HISTORY OF PRESENT ILLNESS: This is a pleasant 75-year-old gentleman who returns to the pain clinic today with his to discuss and obtain refills of his medication. Today, the patient reports a pain of 7-8/10 today. This is a slight increase in his normal pain that he experiences in his low back and right leg. Per the 's report, they have been trying to utilize his Butrans patch slightly longer than a week and his pain increased during this time. They do not realize that they need to re-place his patch every 7 days, that is as it is prescribed. He has not been utilizing his Voltaren gel as often and she also reports that they will restart this as she found that is beneficial in helping some of his knee pain. His pain is typically worse with walking and activity and better when he is sitting down and taking his meds appropriately. He denies significant constipation or daytime somnolence as a result of his medications. He does use MiraLax on a daily basis. ALLERGIES: No known drug allergies. CURRENT LIST OF MEDICATIONS: Butrans patch 5 mcg, nabumetone 500 mg b.i.d., tramadol p.r.n., Aricept, Namenda, Flomax, losartan, gabapentin, finasteride, escitalopram, and abiraterone acetate daily. PQRS: 1. He has osteoarthritic changes in his knees and back. Denies any rheumatoid arthritis. 2. Height is 5 feet 6 inches, weight is 160 and BMI is 25. 3. Vital signs 164/100, pulse is 70, respirations 14, oxygen sat is 100%. 4. Pain score is 7 to 8. 5. Denies dizziness, does not need assistance with ambulation. Has not fallen in the last 3 months. 6. The patient is not on any blood thinners, but does take medicine for hypertension. 7. Opioid therapy is greater than 6 weeks; therefore, an opioid signed contract is on the chart. Risk assessment is low. Functional assessment is 45/70. 8. Recreational drug use, he denies. He is not a smoker and occasionally drinks alcohol. According to the prescription monitoring system, he is due to fill his [address] [address] PAIN MANAGEMENT CONSULTATION Name: HANNAH MORGAN Room #: REG CLI Juan#: [id number] Admission: 08/19/20 Attend Phys: Janina Triplett Discharge: Date of : 47 Report #: [id number] medications today slightly past due. He does take tramadol from Dr. Daniel as well. His morphine mEq is under the CDC guidelines of 50, quite significantly low greater around 20 MMEs per day. PHYSICAL EXAMINATION: GENERAL: This is alert and pleasant gentleman who ___ from his due to his forgetfulness and dementia. He has a pleasant affect. He does not appear overmedicated. He is rating his pain score at 8/10 today. HEENT: Normocephalic, atraumatic. Extraocular eye muscles are intact. Speech is fluent. He is wearing a mask. MUSCULOSKELETAL: He has pain that radiates from the lumbosacral region into his bilateral legs, greater on the right lower extremity. Tenderness in his bilateral knees with no edema noted. He moves from the sitting to standing position without difficulty, but has a slightly antalgic gait. His strength in his lower extremities is symmetrical at 5/5. IMPRESSION: 1. History of prostate cancer with ongoing treatment. 2. Chronic low back pain. 3. Dementia and Alzheimer's, being treated with medications. 4. Osteoarthritis, affecting multiple joints. 5. Opioid medication under written agreement. PLAN: 1. We discussed treatment options with the patient today. I encouraged him to change the Butrans patch every week as prescribed. I believe the medications greatly reduce their efficacy if they utilize it longer; therefore, increasing the patient's pain. The does agree and she now will continue allowing a 7-day rotation. We will have Dr. Danish Gordon refill this medication and send electronically for 3 months. 2. They do take tramadol on a daily basis as well, utilizing 2-3 tablets a day from Dr. Daniel and they will continue this medication. 3. We did discuss utilizing Voltaren gel in the morning and at night when the patient is able to place this on his knees and then continue his nabumetone during the day. Scripts sent for refills of his nabumetone, they may obtain Voltaren gel [id number] and hopefully this will decrease some of his knee pain. 4. I encouraged them to obtain a blood pressure cuff and take his blood pressure on a daily basis at the same time at home. His vital signs have been slowly increasing in the last few visits, today it is 164/100 and unsure if that is due to increased pain or he is averaging higher numbers, so they will obtain a blood pressure cuff, take it on a daily basis and contact their primary care [facility] [address] [place] [address] PAIN MANAGEMENT CONSULTATION Name: HANNAH MORGAN Room #: REG NITISH Martinez#: [id number] Admission: 08/19/20 Attend Phys: Janina Triplett Discharge: Date of : 47 Report #: [id number] doctor with results. 6. The patient is seen in collaboration with Dr. Gordon. By: [id number] Janina Triplett /nt
[2020-08-19 09:35] VITALS: BP 164/100
--- NOTE | 2020-08-19 09:51 | NUR ---
Pain Clinic Assessment: 1. History of Osteoarthritis: knees spine History of Rheumatoid Arthritis: Not Applicable 2. Height: 5 ft. 6 in. 167.6 cm. Weight: 160.0 lb. oz. 72.576 kg. Patient's BMI: 25.8 3. Vital Signs: BP: 164/100 Pulse: 70 Resp: 14 Temp: 02 Sat: 100 ECG Mon: 4. Pain Intensity: 7-8 5. Fall Risk: Dizziness: N Needs help standing or walking: N Fallen in the last 3 months: N Fall risk comments: 6. Patient on Blood Thinner: None 7. History of Hypertension: Y 8. Opioid Therapy greater than 6 weeks: N Opiate Contract Signed: 9. Risk Assessment Tool Provided: 0-low risk 10. Functional Assessment Tool: 11. Recreational Drug Use: Never Drug Type: Tobacco Use: Never Smoker Tobacco Type: Amount or Packs/day: How Many Years: Alcohol Use: Yes Frequency: Special Occasions Quant:
== END ==
LOC: PAIN 06:38
PROVIDERS: ATTEND Clinical Nurse Specialist Adult Health
DX: M54.5 Low back pain (principal); G89.29 Other chronic pain; G30.9 Alzheimer's disease, unspecified; M19.90 Unspecified osteoarthritis, unspecified site; F02.80 Dementia in other diseases classified elsewhere, unspecified severity, without behavioral disturbance, psychotic disturbance, mood disturbance, and anxiety; Z85.9 Personal history of malignant neoplasm, unspecified; Z79.891 Long term (current) use of opiate analgesic; Z79.899 Other long term (current) drug therapy

== ENCOUNTER → 2020-11-29 | Outpatient (CLI) | payer OTHER ==
[~2020-11-29] VITALS: Ht 167.6 cm; Wt 73.7 kg
[~2020-11-29] MED LIST changes: +BUTRANS1 EACH TRANSDERM
[2020-11-29 13:48] VITALS: BP 151/99
--- NOTE | 2020-11-29 13:59 | NUR ---
Pain Clinic Assessment: 1. History of Osteoarthritis: knees spine History of Rheumatoid Arthritis: Not Applicable 2. Height: 5 ft. 6 in. 167.6 cm. Weight: 162.4 lb. oz. 73.664 kg. Patient's BMI: 26.2 3. Vital Signs: BP: 151/99 Pulse: 82 Resp: 20 Temp: 02 Sat: 98 ECG Mon: 4. Pain Intensity: 6 5. Fall Risk: Dizziness: N Needs help standing or walking: Y Fallen in the last 3 months: N Fall risk comments: 6. Patient on Blood Thinner: None 7. History of Hypertension: Y 8. Opioid Therapy greater than 6 weeks: N Opiate Contract Signed: 9. Risk Assessment Tool Provided: 0-low risk 10. Functional Assessment Tool: 11. Recreational Drug Use: Never Drug Type: Tobacco Use: Never Smoker Tobacco Type: Amount or Packs/day: How Many Years: Alcohol Use: No Frequency: Quant:
== END ==
LOC: PAIN 10:08
PROVIDERS: ATTEND Clinical Nurse Specialist Adult Health
DX: M54.5 Low back pain (principal); G89.29 Other chronic pain; I10 Essential (primary) hypertension; G30.9 Alzheimer's disease, unspecified; M19.90 Unspecified osteoarthritis, unspecified site; F02.80 Dementia in other diseases classified elsewhere, unspecified severity, without behavioral disturbance, psychotic disturbance, mood disturbance, and anxiety; Z85.46 Personal history of malignant neoplasm of prostate; Z79.899 Other long term (current) drug therapy; Z79.891 Long term (current) use of opiate analgesic

== ENCOUNTER → 2021-03-31 | Outpatient (CLI) | payer OTHER ==
[~2021-03-31] VITALS: Ht 167.6 cm; Wt 69.9 kg
[~2021-03-31] MED LIST changes: +ASPIRIN325 PO; +DICLOFENAC SOD100 G1 TOP; +LAXATIVE5 M1 PO; +OXYBUTYNIN 5 MG5 M2 PO
[2021-03-31 10:48] VITALS: BP 140/95
--- NOTE | 2021-03-31 11:05 | NUR ---
Pain Clinic Assessment: 1. History of Osteoarthritis: knees spine History of Rheumatoid Arthritis: Not Applicable 2. Height: 5 ft. 6 in. 167.6 cm. Weight: 154.0 lb. oz. 69.854 kg. Patient's BMI: 24.9 3. Vital Signs: BP: 140/95 Pulse: 82 Resp: 20 Temp: 02 Sat: 99 ECG Mon: 4. Pain Intensity: 5 5. Fall Risk: Dizziness: N Needs help standing or walking: Y Fallen in the last 3 months: Y Fall risk comments: 6. Patient on Blood Thinner: None 7. History of Hypertension: Y 8. Opioid Therapy greater than 6 weeks: N Opiate Contract Signed: 9. Risk Assessment Tool Provided: 0-low risk 10. Functional Assessment Tool: 11. Recreational Drug Use: Never Drug Type: Tobacco Use: Never Smoker Tobacco Type: Amount or Packs/day: How Many Years: Alcohol Use: No Frequency: Quant:
== END ==
LOC: PAIN 09:52
PROVIDERS: ATTEND Clinical Nurse Specialist Adult Health
DX: G89.29 Other chronic pain (principal); M54.5 Low back pain; G30.9 Alzheimer's disease, unspecified; F02.80 Dementia in other diseases classified elsewhere, unspecified severity, without behavioral disturbance, psychotic disturbance, mood disturbance, and anxiety; M19.90 Unspecified osteoarthritis, unspecified site; Z79.891 Long term (current) use of opiate analgesic

== ENCOUNTER → 2021-06-30 | Outpatient (CLI) | payer OTHER ==
[~2021-06-30] VITALS: Ht 165.1 cm; Wt 66.6 kg
[~2021-06-30] MED LIST changes: +XTANDI40 MG PO
[2021-06-30 10:24] VITALS: BP 132/96
--- NOTE | 2021-06-30 10:43 | NUR ---
Pain Clinic Assessment: 1. History of Osteoarthritis: knees spine History of Rheumatoid Arthritis: Not Applicable 2. Height: 5 ft. 5 in. 165.1 cm. Weight: 146.8 lb. oz. 66.588 kg. Patient's BMI: 24.4 3. Vital Signs: BP: 132/96 Pulse: 72 Resp: 16 Temp: 02 Sat: 100 ECG Mon: 4. Pain Intensity: 8 5. Fall Risk: Dizziness: N Needs help standing or walking: Y Fallen in the last 3 months: N Fall risk comments: 6. Patient on Blood Thinner: None 7. History of Hypertension: Y 8. Opioid Therapy greater than 6 weeks: N Opiate Contract Signed: 9. Risk Assessment Tool Provided: 0-low risk 10. Functional Assessment Tool: 11. Recreational Drug Use: Never Drug Type: Tobacco Use: Never Smoker Tobacco Type: Amount or Packs/day: How Many Years: Alcohol Use: No Frequency: Quant:
== END ==
LOC: PAIN 10:07
PROVIDERS: ATTEND Anesthesiology Pain Medicine
DX: G89.29 Other chronic pain (principal); M54.50 Low back pain, unspecified; M19.09 Primary osteoarthritis, other specified site; F03.90 Unspecified dementia, unspecified severity, without behavioral disturbance, psychotic disturbance, mood disturbance, and anxiety; Z79.899 Other long term (current) drug therapy